=== PATIENT | male | born 1990 | race American Indian/Alaskan Native ===

== ENCOUNTER 2021-04-09 19:54 | Emergency (ER) | payer MEDICARE ==
[2021-04-09 20:19] VITALS: BP 133/76
--- NOTE | 2021-04-09 21:04 | XRay Report ---
XR spine lumbosacral 2-3V INDICATION / CLINICAL INFORMATION: Ceiling fell on him. COMPARISON: None available. FINDINGS: BONES/JOINT(S): No acute fracture or subluxation. No significant degenerative changes. SOFT TISSUES: No significant abnormality. ADDITIONAL FINDINGS: None. Signer Name: Bo Ramirez MD Signed: 04/09/2021 9:00 PM Workstation Name: [id number]
--- NOTE | 2021-04-09 21:04 | XRay Report ---
XR shoulder 2+V LT INDICATION / CLINICAL INFORMATION: Ceiling fell on him. COMPARISON: None available. FINDINGS: BONES/JOINT(S): No acute fracture or subluxation. No significant degenerative changes. SOFT TISSUES: No significant abnormality. ADDITIONAL FINDINGS: None. Signer Name: Bo Ramirez MD Signed: 04/09/2021 9:00 PM Workstation Name: [id number]
--- NOTE | 2021-04-09 21:57 | Cat Scan Report ---
CT head/brain wo con INDICATION: Ceiling fell on him. Head injury. TECHNIQUE: All CT scans at this location are performed using CT dose reduction for ALARA by means of automated e xposure control. COMPARISON: None available. FINDINGS: There is no evidence of hemorrhage, hydrocephalus, brain edema, or mass effect/mass lesion. There is overall normal brain formation and brain volume for the patient's age. Ventricular and cisternal/sulc al size is normal for age. The included paranasal sinuses and mastoid air cells are clear. The orbits appear unremarkable. IMPRESSION: 1. No acute intracranial abnormality. Signer Name: Bo Ramirez MD Signed: 04/09/2021 9:53 PM Workstation Name: [id number]
--- NOTE | 2021-04-09 21:59 | Cat Scan Report ---
CT CERVICAL SPINE WITHOUT CONTRAST INDICATION: Ceiling fell on him. TECHNIQUE: Axial CT images of the spine were obtained. Sagittal and coronal reformatted images were produced. Al l CT scans at this location are performed using CT dose reduction for ALARA by means of automated exp osure control. COMPARISON: None available. FINDINGS: ACUTE FRACTURE(S) OR SUBLUXATION: None. SPINAL DEGENERATIVE CHANGES: No significant degenerative changes. PARASPINAL SOFT TISSUES: No soft tissue swelling or other acute abnormalities. ADDITIONAL FINDINGS: No significant additional findings. IMPRESSION: 1. No acute fracture or subluxation in the spine in neutral position. Signer Name: Bo Ramirez MD Signed: 04/09/2021 9:54 PM Workstation Name: [id number]
[2021-04-09] MEDS ORDERED: ACETAMINOPHEN 500 MG TAB PO ONE (22:15)
[2021-04-09] MEDS ORDERED: CYCLOBENZAPRINE 10 MG TAB PO ONE (22:15)
[2021-04-09] MEDS ORDERED: IBUPROFEN 600 MG TAB PO ONE (22:15)
--- NOTE | 2021-04-09 22:20 | Emergency Department Report ---
ED Head Trauma HPI - General Chief complaint: Fall Stated complaint: ARM/BACK PAIN Source: patient, EMS Mode of arrival: Wheelchair Limitations: No Limitations - History of Present Illness Initial comments: Patient is a 30-year-old -Spanish male with no past medical history who presents to the ED with complaint of acute onset persistent headache, neck pain, left shoulder and lower back pain after the ceiling of his closet collapsed onto him and hit him on the head about 4 hours ago. Patient states that since this incident occurred, his lower back pain, left shoulder pain and headache have worsened. Patient denies loss of consciousness, dizziness, syncope, seizures, change in vision, nausea and vomiting, numbness and tingling or weakness of upper and lower extremities bilaterally, abdominal pain, chest pain, shortness of breath or hematuria. MD Complaint: head injury, other (Left shoulder, lower back pain; headache) -: Sudden, hour(s) (4) Arrival Conditions: Negative: C-spine immobilization present, spinal board immobilization present Mechanism of Injury: other (The closet ceiling fell on him) Location: parietal Loss of Consciousness: no Previous Trauma to this Area: No Place: home Radiation: none Severity: severe Severity scale (0 -10): 7 Quality: sharp, aching Consistency: constant Provoking factors: none known Other Injuries: LUE (left shoulder), other (lower back ) Associated Symptoms: denies other symptoms. denies: confusion, amnesia, repetitive questioning, vision changes, nausea, vomiting, vertigo, syncope, numbness, weakness, tingling, neck pain, other - Related Data Previous Rx's Medication Instructions Recorded Last Taken Type Baclofen 20 mg PO Q12H PRN #20 tablet 04/09/21 Unknown Rx Ibuprofen [Motrin] 800 mg PO Q8HR PRN #30 tablet 04/09/21 Unknown Rx Allergies/Adverse reactions: Allergies Allergy/AdvReac Type Severity Reaction Status Date / Time No Known Allergies Allergy Unverified 09/28/15 09:34 ED Review of Systems ROS: Stated complaint: ARM/BACK PAIN Other details as noted in HPI Constitutional: denies: chills, fever Eyes: denies: eye pain, eye discharge, vision change ENT: denies: ear pain, throat pain Respiratory: denies: cough, shortness of breath, wheezing Cardiovascular: denies: chest pain, palpitations Endocrine: no symptoms reported Gastrointestinal: denies: abdominal pain, nausea, vomiting, diarrhea Genitourinary: denies: urgency, dysuria Musculoskeletal: back pain (lower back pain), arthralgia (Left shoulder pain), other (Neck pain). denies: joint swelling Skin: denies: rash, lesions Neurological: headache. denies: weakness, paresthesias Psychiatric: denies: anxiety, depression Hematological/Lymphatic: denies: easy bleeding, easy bruising ED Past Medical Hx - Past Medical History Previous Medical History?: No - Surgical History Past Surgical History?: Yes Additional Surgical History: abdominal hernia - Social History Smoking Status: Never Smoker - Medications Home Medications: Home Medications Medication Instructions Recorded Confirmed Last Taken Type Baclofen 20 mg PO Q12H PRN #20 tablet 04/09/21 Unknown Rx Ibuprofen [Motrin] 800 mg PO Q8HR PRN #30 tablet 04/09/21 Unknown Rx ED Physical Exam - General Limitations: No Limitations General appearance: alert, in no apparent distress - Head Head exam: Present: atraumatic, normocephalic, normal inspection - Eye Eye exam: Present: normal appearance, PERRL, EOMI Pupils: Present: normal accommodation - ENT ENT exam: Present: normal exam, normal orophraynx, mucous membranes moist, TM's normal bilaterally, normal external ear exam - Neck Neck exam: Present: normal inspection, tenderness (Palpable cervical paraspinal musculoskeletal tenderness), full ROM - Respiratory Respiratory exam: Present: normal lung sounds bilaterally. Absent: respiratory distress, wheezes, rhonchi, chest wall tenderness, accessory muscle use, decreased breath sounds - Cardiovascular Cardiovascular Exam: Present: regular rate, normal rhythm, normal heart sounds. Absent: systolic murmur, diastolic murmur, rubs, gallop - GI/Abdominal GI/Abdominal exam: Present: soft, normal bowel sounds. Absent: tenderness, guarding, rebound, hyperactive bowel sounds, hypoactive bowel sounds - Extremities Exam Extremities exam: Present: normal inspection, full ROM, tenderness (Palpable left shoulder tenderness), normal capillary refill - Back Exam Back exam: Present: normal inspection, full ROM, tenderness (Palpable lumbosacral paraspinal musculoskeletal tenderness), muscle spasm, paraspinal tenderness. Absent: CVA tenderness (L), vertebral tenderness - Neurological Exam Neurological exam: Present: alert, oriented X3, CN II-XII intact, normal gait, reflexes normal - Psychiatric Psychiatric exam: Present: normal affect, normal mood - Skin Skin exam: Present: warm, dry, intact, normal color. Absent: rash ED Course Vital Signs 04/09/21 20:06 Temperature 99.0 F Pulse Rate 86 Respiratory 18 Rate Blood Pressure 133/76 O2 Sat by Pulse 96 Oximetry - Radiology Data Radiology results: report reviewed, image reviewed [facility] [address] [place] [address] XRay Report Signed Patient: RAISA HOLDEN MR#: [id number] : 1990 Acct:[id number] Age/Sex: 30 / M ADM Date: 04/09/21 Loc: ED Attending Dr: Ordering Physician: CHAD BEAR Date of Service: 04/09/21 Procedure(s): XR spine lumbosacral 2-3V Accession Number(s): [id number] cc: CHAD BEAR Fluoro Time In Minutes: XR spine lumbosacral 2-3V INDICATION / CLINICAL INFORMATION: Ceiling fell on him. COMPARISON: None available. FINDINGS: BONES/JOINT(S): No acute fracture or subluxation. No significant degenerative changes. SOFT TISSUES: No significant abnormality. ADDITIONAL FINDINGS: None. Signer Name: Bo Ramirez MD Signed: 04/09/2021 9:00 PM Workstation Name: [id number] Transcribed By: ÁLVARO Dictated By: Bo Ramirez MD Electronically Authenticated By: Bo Ramirez MD Signed Date/Time: 04/09/212099 DD/ 99 TD/TT: [facility] [address] [place] [address] XRay Report Signed Patient: RAISA HOLDEN MR#: [id number] : 1990 Acct:[id number] Age/Sex: 30 / M ADM Date: 04/09/21 Loc: ED Attending Dr: Ordering Physician: CHAD BEAR Date of Service: 04/09/21 Procedure(s): XR shoulder 2+V LT Accession Number(s): [id number] cc: CHAD BEAR Fluoro Time In Minutes: XR shoulder 2+V LT INDICATION / CLINICAL INFORMATION: Ceiling fell on him. COMPARISON: None available. FINDINGS: BONES/JOINT(S): No acute fracture or subluxation. No significant degenerative changes. SOFT TISSUES: No significant abnormality. ADDITIONAL FINDINGS: None. Signer Name: Bo Ramirez MD Signed: 04/09/2021 9:00 PM Workstation Name: [id number] Transcribed By: ÁLVARO Dictated By: Bo Ramirez MD Electronically Authenticated By: Bo Ramirez MD Signed Date/Time: 04/09/212099 DD/ 99 TD/TT: [facility] [address] [place] [address] Cat Scan Report Signed Patient: RAISA HOLDEN MR#: [id number] : 1990 Acct:[id number] Age/Sex: 30 / M ADM Date: 04/09/21 Loc: ED Attending Dr: Ordering Physician: CHAD BEAR Date of Service: 04/09/21 Procedure(s): CT cervical spine wo con Accession Number(s): [id number] cc: CHAD BEAR CT CERVICAL SPINE WITHOUT CONTRAST INDICATION: Ceiling fell on him. TECHNIQUE: Axial CT images of the spine were obtained. Sagittal and coronal reformatted images were produced. All CT scans at this location are performed using CT dose reduction for ALARA by means of automated exposure control. COMPARISON: None available. FINDINGS: ACUTE FRACTURE(S) OR SUBLUXATION: None. SPINAL DEGENERATIVE CHANGES: No significant degenerative changes. PARASPINAL SOFT TISSUES: No soft tissue swelling or other acute abnormalities. ADDITIONAL FINDINGS: No significant additional findings. IMPRESSION: 1. No acute fracture or subluxation in the spine in neutral position. Signer Name: Bo Ramirez MD Signed: 04/09/2021 9:54 PM Workstation Name: [id number] Transcribed By: ÁLVARO Dictated By: Bo Ramirez MD Electronically Authenticated By: Bo Ramirez MD Signed Date/Time: 04/09/212153 DD/ 52 TD/TT: - [facility] [address] [place] [address] Cat Scan Report Signed Patient: RAISA HOLDEN MR#: [id number] : 1990 Acct:[id number] Age/Sex: 30 / M ADM Date: 04/09/21 Loc: ED Attending Dr: Ordering Physician: CHAD BEAR Date of Service: 04/09/21 Procedure(s): CT head/brain wo con Accession Number(s): [id number] cc: CHAD BEAR CT head/brain wo con INDICATION: Ceiling fell on him. Head injury. TECHNIQUE: All CT scans at this location are performed using CT dose reduction for ALARA by means of automated exposure control. COMPARISON: None available. FINDINGS: There is no evidence of hemorrhage, hydrocephalus, brain edema, or mass effect/mass lesion. There is overall normal brain formation and brain volume for the patient's age. Ventricular and cisternal/sulcal size is normal for age. The included paranasal sinuses and mastoid air cells are clear. The orbits appear unremarkable. IMPRESSION: 1. No acute intracranial abnormality. Signer Name: Bo Ramirez MD Signed: 04/09/2021 9:53 PM Workstation Name: [id number] Transcribed By: ÁLVARO Dictated By: Bo Ramirez MD Electronically Authenticated By: Bo Ramirez MD Signed Date/Time: 04/09/212152 DD/ 51 TD/TT: - Medical Decision Making This is a 30-year-old -Spanish male with no past medical history who presents to the ED with complaint of acute onset persistent headache, neck pain, left shoulder and lower back pain after the ceiling of his closet collapsed onto him and hit him on the head about 4 hours ago. Patient states that since this incident occurred, his lower back pain, left shoulder pain and headache have worsened. In the ED, patient is alert and oriented x3 and is not in distress. Patient however appears to be in pain but is hemodynamically stable. Patient was treated for pain in the ED and the left shoulder x-ray showed no acute fractures or subluxations. The L-spine x-ray showed no acute fractures or subluxations of the lumbar spine or lumbar disks. The C-spine CT scan without contrast showed no acute cervical disc or spine fractures and subluxations. The head CT scan without contrast showed no acute intracranial abnormalities or hemorrhage. On reevaluation, patient's pain is well controlled medication. Patient was discharged home on pain medications and advised to follow-up with his primary care physician in 5 to 7 days for reevaluation. At the time of discharge from the ED, patient is hemodynamically stable, his pain is well controlled medication. Patient was discharged home and advised to return to the ED immediately if symptoms get worse. - Differential Diagnosis shoulder sprain; Muscle spasm; Head injury; cervical sprain - Core Measures AMI Core Measures Followed: No Measure Exclusions: not indicated - NEXUS Criteria Focal neurological deficit present: No Midline spinal tenderness present: No Altered level of consciousness: No Intoxication present: No Distracting injury present: No NEXUS results: C-Spine can be cleared clinically by these results. Imaging is not required. Critical care attestation.: If time is entered above; I have spent that time in minutes in the direct care of this critically ill patient, excluding procedure time. ED Disposition Clinical Impression: Spasm of muscle of lower back, Strain of muscle, fascia and tendon of lower back, initial encounter, Cervical paraspinous muscle spasm Contusion of face, scalp and neck Qualifiers: Encounter type: initial encounter Qualified Code(s): S00.83XA - Contusion of other part of head, initial encounter; S00.03XA - Contusion of scalp, initial encounter; S10.93XA - Contusion of unspecified part of neck, initial encounter Sprain of left shoulder Qualifiers: Encounter type: initial encounter Shoulder sprain type: unspecified sprain Qualified Code(s): S43.402A - Unspecified sprain of left shoulder joint, initial encounter Disposition: TO HOME OR SELFCARE Is pt being admited?: No Does the pt Need Aspirin: No Condition: Stable Instructions: Muscle Cramps and Spasms, [id number], Muscle Strain, [id number], Facial or Scalp Contusion, [id number], Neck Contusion, [id number] Additional Instructions: The head CT scan without contrast showed no acute intracranial abnormalities or hemorrhage. The C-spine CT scan without contrast showed no acute cervical disc or spine fractures and subluxations. The left shoulder x-ray showed no acute fractures or subluxations. The L-spine x-ray showed no acute lumbar spine or lumbar disc fractures and subluxations. Therefore based on history, physical exam findings as well as the imaging reports which are all unremarkable. Your symptoms are likely due to musculoskeletal injuries. Therefore take pain medications and muscle relaxants as advised, drink plenty of fluids and follow- up with your primary care physician in 5 to 7 days for reevaluation. Return to the ED immediately if symptoms get worse. Prescriptions: Baclofen 20 mg PO Q12H PRN #20 tablet PRN Reason: Muscle Spasm Ibuprofen [Motrin] 800 mg PO Q8HR PRN #30 tablet PRN Reason: Pain , Severe (7-10) Referrals: [facility] [Provider Group] - 3-5 Days Forms: Work/School Release Form(ED) Time of Disposition: 22:24 Print Language: RUSSIAN
== END 2021-04-09 23:00 | disposition home or self-care (01) ==
LOC: ED 19:54
DX: S39.012A Strain of muscle, fascia and tendon of lower back, initial encounter (principal); S43.492A Other sprain of left shoulder joint, initial encounter; S00.83XA Contusion of other part of head, initial encounter; S00.03XA Contusion of scalp, initial encounter; S10.93XA Contusion of unspecified part of neck, initial encounter; M62.830 Muscle spasm of back; M62.838 Other muscle spasm; Z98.890 Other specified postprocedural states; Z79.899 Other long term (current) drug therapy; W22.8XXA Striking against or struck by other objects, initial encounter; Y93.89 Activity, other specified; Y92.89 Other specified places as the place of occurrence of the external cause; Y99.8 Other external cause status
CPT/HCPCS: 70450; 72100; 72125; 99284